=== PATIENT | male | born 1980 | race Caucasian/White ===

== ENCOUNTER 2018-04-15 11:53 | Emergency (ER) | payer SELFPAY ==
[~2018-04-15] VITALS: Ht 190.5 cm; Wt 112.0 kg
[2018-04-15 11:57] VITALS: Ht 190.5 cm; Wt 112.0 kg
[2018-04-15 16:09] VITALS: BP 118/73
== END 2018-04-15 16:09 | disposition home or self-care (01) ==
LOC: EDBD 11:53 → ED 11:53
DX: S61.213A Laceration without foreign body of left middle finger without damage to nail, initial encounter (principal); W20.8XXA Other cause of strike by thrown, projected or falling object, initial encounter; Y93.89 Activity, other specified; Y92.89 Other specified places as the place of occurrence of the external cause; Y99.8 Other external cause status
CPT/HCPCS: 90715; A4570; J2001